=== PATIENT | male | born 1995 | race Caucasian/White ===

== ENCOUNTER 2018-05-08 17:53 | Emergency (ER) | payer BC, SELFPAY ==
--- NOTE | 2018-05-08 18:53 | RAD ---
LEFT HIP TWO VIEWS: 05/08/2018 HISTORY: Injury. Trauma. Pain. FINDINGS: No acute fracture or evidence of dislocation seen. IMPRESSION: No acute findings. POS: [facility]
== END 2018-05-08 18:54 | disposition home or self-care (01) ==
LOC: SCSER 17:53
DX: S06.9X9A Unspecified intracranial injury with loss of consciousness of unspecified duration, initial encounter (principal); S60.511A Abrasion of right hand, initial encounter; S80.212A Abrasion, left knee, initial encounter; S80.211A Abrasion, right knee, initial encounter; M25.552 Pain in left hip; F31.9 Bipolar disorder, unspecified; F17.210 Nicotine dependence, cigarettes, uncomplicated; Z79.899 Other long term (current) drug therapy; Y04.8XXA Assault by other bodily force, initial encounter